=== PATIENT | female | born 1955 | race Caucasian/White ===

== ENCOUNTER → 2023-07-10 11:04 | Outpatient (REF) | payer MEDICARE, OTHER, SELFPAY | LOC: HWRAD 11:04 | PROVIDERS: ATTENDING PHYSICIAN Psychiatry & Neurology Neurology; FAMILY PHYSICIAN Internal Medicine | DX: M25.552 Pain in left hip (principal); M46.1 Sacroiliitis, not elsewhere classified | CPT/HCPCS: 72202; 73502 ==

== ENCOUNTER → 2023-08-21 09:00 | Outpatient (REF) | payer MEDICARE, OTHER, SELFPAY | LOC: HWRAD 09:00 | PROVIDERS: ATTENDING PHYSICIAN Student in an Organized Health Care Education/Training Program; FAMILY PHYSICIAN Internal Medicine | DX: J45.909 Unspecified asthma, uncomplicated (principal); R05.2 Subacute cough | CPT/HCPCS: 71046 ==

== ENCOUNTER → 2024-03-22 16:31 | Outpatient (REF) | payer MEDICARE, OTHER, SELFPAY | LOC: WDC 16:31 | PROVIDERS: ATTENDING PHYSICIAN Obstetrics & Gynecology Gynecology; FAMILY PHYSICIAN Internal Medicine | DX: Z12.31 Encounter for screening mammogram for malignant neoplasm of breast (principal) | CPT/HCPCS: 77063; 77067 ==

== ENCOUNTER 2024-04-12 09:46 | Emergency (ER) | payer MEDICARE, OTHER, SELFPAY ==
[2024-04-12 09:49] VITALS: BP 171/89
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
== END 2024-04-12 10:47 | disposition home or self-care (01) ==
LOC: EMR 09:46
PROVIDERS: EMERGENCY PHYSICIAN Student in an Organized Health Care Education/Training Program; FAMILY PHYSICIAN Internal Medicine
DX: M54.2 Cervicalgia (principal); V43.52XA Car driver injured in collision with other type car in traffic accident, initial encounter; K21.9 Gastro-esophageal reflux disease without esophagitis; I10 Essential (primary) hypertension; D64.9 Anemia, unspecified; F41.8 Other specified anxiety disorders; Z82.49 Family history of ischemic heart disease and other diseases of the circulatory system
CPT/HCPCS: 99283; 93005

== ENCOUNTER → 2024-06-23 19:52 | Outpatient (REF) | payer MEDICARE, OTHER, SELFPAY | LOC: MRI 3T 19:52 | PROVIDERS: ATTENDING PHYSICIAN Psychiatry & Neurology Neurology; FAMILY PHYSICIAN Internal Medicine | DX: M54.16 Radiculopathy, lumbar region (principal) | CPT/HCPCS: 72148 ==

== ENCOUNTER → 2024-08-12 15:14 | Outpatient (REF) | payer MEDICARE, OTHER, SELFPAY | LOC: HWRAD 15:14 | PROVIDERS: ATTENDING PHYSICIAN Hospitalist | DX: R59.0 Localized enlarged lymph nodes (principal) | CPT/HCPCS: 76536 ==

== ENCOUNTER → 2024-08-26 09:20 | Outpatient (REF) | payer MEDICARE, OTHER, SELFPAY | LOC: WDC 09:20 | PROVIDERS: ATTENDING PHYSICIAN Hospitalist | DX: N63.10 Unspecified lump in the right breast, unspecified quadrant (principal); N63.14 Unspecified lump in the right breast, lower inner quadrant | CPT/HCPCS: 76642 ==